=== PATIENT | male | born 1960 | race Caucasian/White ===

== ENCOUNTER 2017-01-03 05:16 | Inpatient (IN) | payer BC ==
[~2017-01-03] VITALS: Ht 182.9 cm; Wt 100.8 kg
[~2017-01-03 05:16] MED LIST: COUMADIN1 MG PO; CRESTOR10 MG PO; FEOSOL325 MG PO; IRON160 M1 PO; LEXAPRO20 MG PO; LORCET 5-325 M1 EACH PO; MULTIPLE VITAM1 EACH PO; OXYCODONE HCL5 MG PO; PRINIVIL10 MG PO; VOLTAREN75 MG PO
[2017-01-03] MEDS ORDERED: HYDROCHLOROTHIA25 MG PO (06:07)
[2017-01-03 06:09] VITALS: BP 130/75
[2017-01-03 10:59] VITALS: BP 113/62
[2017-01-03 13:30] VITALS: BP 113/58
[2017-01-03 15:51] VITALS: BP 136/80
[2017-01-03 17:46] VITALS: BP 142/66
[2017-01-03 20:15] VITALS: BP 129/72
[2017-01-04 00:28] VITALS: BP 123/73
[2017-01-04 04:20] VITALS: BP 110/63
[2017-01-04 05:21] LABS: HEMATOCRIT 40.3 % (38.0-50.0)
[2017-01-04 05:54] LABS: ANION GAP 8 MEQ/L (2-14); CHLORIDE 99 MEQ/L (99-109); GFR ESTIMATE (CALCULATED) > 59 mL/min/; GLUCOSE 124 mg/dL (70-99); POTASSIUM 4.5 MEQ/L (3.7-5.4); SAMPLE HEMOLYSIS CHECK 0; SAMPLE ICTERIC CHECK 0; SAMPLE LIPEMIA CHECK 0; SODIUM 137 MEQ/L (136-147); UREA NITROGEN (BUN) 15 mg/dL (9-23)
[2017-01-04 08:20] VITALS: BP 134/73
[2017-01-04 11:56] VITALS: BP 113/66
[2017-01-04 15:49] VITALS: BP 139/84
[2017-01-04 19:51] VITALS: BP 134/76
[2017-01-05 00:30] VITALS: BP 133/62
[2017-01-05 04:30] VITALS: BP 120/58
[2017-01-05 05:28] LABS: HEMATOCRIT 38.9 % (38.0-50.0); MCV 89.6 FL (86-99)
[2017-01-05] MEDS ORDERED: XARELTO10 MG PO (08:11)
[2017-01-05] MEDS ORDERED: SENNA PLUS TAB1 EACH PO (08:11)
[2017-01-05] MEDS ORDERED: OXYCODONE HCL5 MG PO (08:11)
[2017-01-05 08:15] VITALS: BP 120/77
[2017-01-05 11:47] VITALS: BP 116/61
== END 2017-01-05 14:51 | disposition home or self-care (01) | DRG 470 ==
LOC: 2SOUTH 05:16 → 3WEST 10:26 → SDC 15:43 → EDSTATUS 15:44 → 2SOUTH 15:45 → 3WEST 01-05 14:51
PROVIDERS: Orthopaedic Surgery
PROC: 0SRB02Z Replacement of Left Hip Joint with Metal on Polyethylene Synthetic Substitute, Open Approach (ICD-10-PCS; principal; 2017-01-03)
DX: M16.12 Unilateral primary osteoarthritis, left hip (principal); I10 Essential (primary) hypertension; F32.9 Major depressive disorder, single episode, unspecified
CPT/HCPCS: 73501; 80048; 85014; 85018; C1713; J0131; J0690; J1100; J2250; J2405; J7050; J7120